=== PATIENT | female | born 1995 | race Caucasian/White ===

== ENCOUNTER 2016-03-12 15:57 | Emergency (ER) | payer BC ==
[~2016-03-12] VITALS: Ht 152.4 cm; Wt 52.0 kg
[2016-03-12 16:11] VITALS: TEMP 37; Ht 152.4 cm; Wt 52.0 kg
[2016-03-12] MEDS ORDERED: SODIUM CHLORIDE 0.9% 1000ML 1,000 ML IV STA (17:00)
[2016-03-12] MEDS ORDERED: KETOROLAC TROMETHAMINE 30 MG/ML VIAL IV STA (17:00)
[2016-03-12] MEDS ORDERED: ONDANSETRON INJ 2 MG/ML 2 ML VIAL IV STA (17:00)
--- NOTE | 2016-03-12 17:23 | EMERGENCY ROOM VISIT NOTE ---
History Report prepared by Timiibbrandon: Meredith Lemon Under the Supervision of: Dr. Anthony Galan D.O. First contact with patient: 16:55 Chief Complaint: OTHER COMPLAINT Stated Complaint: MUSCLES SPASMS,LIGHT SENSITIVITY,PAIN IN HEAD History of Present Illness The patient is a 20 year old female who presents to the Emergency Room with complaints of waxing and waning diffuse muscle spasms that have been going on for the past several hours. Per patient's boyfriend, at worst, her entire body is thrashing. The episodes improve to the point where only one extremity is shaking but the shaking has never completely gone away. About 30 minutes after her symptoms began, she was very weak and could not stand up. About an hour later she was able to walk but her boyfriend notes that she was shuffling her feet slowly. The patient also complains of a slight frontal headache with photophobia. Her boyfriend was also concerned that it took her a few seconds to realize how to sign her name when she was in the emergency room. The patient reports having similar shaking episodes when she was in middle school but they never lasted more than a half hour. She has not had an episode since 2011. She was seen by neurology and has been on gabapentin and tramadol in the past. Source of History: patient, spouse/significant other Onset: a few hours ago Position: other (global) Quality: other (muscle spams/shaking) Timing: waxes/wanes Associated Symptoms: + headache (with photophobia), + weakness Review of Systems See HPI for pertinent positives & negatives. A total of 10 systems reviewed and were otherwise negative. Past Medical & Surgical Medical Problems: (1) Arthritis Family History No pertinent family history stated. Social History Smoking Status: Never Smoker Smokeless Tobacco Use: No Alcohol Use: none Marital Status: in relationship Current/Historical Medications Scheduled Etodolac (Etodolac), 500 MG PO DAILY Gabapentin (Neurontin), 100 MG PO BID Scheduled PRN Cetirizine (Zyrtec), 10 MG PO DAILY PRN for ALLERGIC REACTION Physical Exam Vital Signs Date Time Temp Pulse Resp B/P Pulse Ox O2 Delivery O2 Flow Rate FiO2 03/12/16 21:19 70 20 122/70 99 03/12/16 21:08 78 20 113/76 100 Room Air 03/12/16 18:21 73 16 126/80 98 Room Air 03/12/16 18:02 69 03/12/16 16:11 37.0 97 18 113/75 97 Room Air Physical Exam GENERAL: Lying in ER bed with significant other, laughing with significant other, intermittently shaking with right upper extremity upon our entry to the room. EYES: The conjunctivae are clear. The pupils are round and reactive. EARS, NOSE, MOUTH AND THROAT: The nose is without any evidence of any deformity. Mucous membranes are moist tongue is midline NECK: The neck is nontender and supple. RESPIRATORY: Normal respiratory effort is noted there is no evidence of wheezing rhonchi or rales CARDIOVASCULAR: Regular rate and rhythm noted there no murmurs rubs or gallops normal S1 normal S2 GASTROINTESTINAL: The abdomen is soft. Bowel sounds are present in all quadrants. Abdomen is nontender MUSCULOSKELETAL/EXTREMITIES: There is no evidence of gross deformity full range of motion is noted in the hips and shoulders SKIN: There is no obvious evidence of any rash. There are no petechiae, pallor or cyanosis noted. NEUROLOGIC: Patient is awake alert and oriented x3 strength is symmetric patellar reflexes are 2+ bilaterally Medical Decision & Procedures ER Provider Diagnostic Interpretation: X ray results and stated below per my interpretation and radiology interpretation. Other radiology results per my review and radiologist interpretation: CT HEAD WITHOUT CONTRAST (CT) CLINICAL HISTORY: Change in mental status with new onset weakness COMPARISON STUDY: No previous studies for comparison. TECHNIQUE: Axial CT of the brain is performed from the vertex to the skull base. IV contrast was not administered for this examination. CT DOSE: 638.56 mGycm FINDINGS: No intra or extra-axial mass lesions are visualized. There is no CT evidence of acute cortical infarction. There is no evidence of midline shift. There is no acute hemorrhage. No calvarial fractures are visualized. There is no evidence of pathologic ventricular dilatation. There is no evidence of acute sinusitis If unexplained neurological symptoms persist, an MRI could be obtained in follow-up IMPRESSION: Normal noncontrast head CT. Electronically signed by: Dillon Sharma M.D. 03/12/2016 5:51 PM Dictated Date/Time: 03/12/2016 5:49 PM CHEST ONE VIEW PORTABLE CLINICAL HISTORY: weakness COMPARISON STUDY: No previous studies for comparison. FINDINGS: The cardiac and mediastinal contours are normal. There is no evidence of focal pulmonary consolidation. There is no evidence of failure. No pleural effusions are visualized.[ IMPRESSION: No active disease in the chest. Electronically signed by: Dillon Sharma M.D. 03/12/2016 6:04 PM Dictated Date/Time: 03/12/2016 6:03 PM Laboratory Results 03/12/16 17:25 Red Blood Count 5.10, Mean Corpuscular Volume 84.1, Mean Corpuscular Hemoglobin 29.2, Mean Corpuscular Hemoglobin Concent 34.7, Mean Platelet Volume 11.4, Neutrophils (%) (Auto) 75.3, Lymphocytes (%) (Auto) 15.6, Monocytes (%) (Auto) 6.7, Eosinophils (%) (Auto) 2.0, Basophils (%) (Auto) 0.2, Neutrophils # (Auto) 8.87, Lymphocytes # (Auto) 1.84, Monocytes # (Auto) 0.79, Eosinophils # (Auto) 0.24, Basophils # (Auto) 0.02 03/12/16 17:25 Test 03/12/16 00:00 03/12/16 17:25 Urine Color YELLOW Urine Appearance CLEAR (CLEAR) Urine pH 6.5 (4.5-7.5) Urine Specific Pinson 1.005 (1.000-1.030) Urine Protein NEG (NEG) Urine Glucose (UA) NEG (NEG) Urine Ketones NEG (NEG) Urine Occult Blood NEG (NEG) Urine Nitrite NEG (NEG) Urine Bilirubin NEG (NEG) Urine Urobilinogen NEG (NEG) Urine Leukocyte Esterase NEG (NEG) White Blood Count 11.78 K/uL (4.8-10.8) Red Blood Count 5.10 M/uL (4.2-5.4) Hemoglobin 14.9 g/dL (12.0-16.0) Hematocrit 42.9 % (37-47) Mean Corpuscular Volume 84.1 fL (80-100) Mean Corpuscular Hemoglobin 29.2 pg (25-34) Mean Corpuscular Hemoglobin Concent 34.7 g/dl (32-36) Platelet Count 208 K/uL (130-400) Mean Platelet Volume 11.4 fL (7.4-10.4) Neutrophils (%) (Auto) 75.3 % Lymphocytes (%) (Auto) 15.6 % Monocytes (%) (Auto) 6.7 % Eosinophils (%) (Auto) 2.0 % Basophils (%) (Auto) 0.2 % Neutrophils # (Auto) 8.87 K/uL (1.4-6.5) Lymphocytes # (Auto) 1.84 K/uL (1.2-3.4) Monocytes # (Auto) 0.79 K/uL (0.11-0.59) Eosinophils # (Auto) 0.24 K/uL (0-0.5) Basophils # (Auto) 0.02 K/uL (0-0.2) RDW Standard Deviation 41.9 fL (36.4-46.3) RDW Coefficient of Variation 13.7 % (11.5-14.5) Immature Granulocyte % (Auto) 0.2 % Immature Granulocyte # (Auto) 0.02 K/uL (0.00-0.02) Anion Gap 9.0 mmol/L (3-11) Est Creatinine Clear Calc Drug Dose 75.6 ml/min Estimated GFR () 113.5 Estimated GFR (Non- 97.9 BUN/Creatinine Ratio 14.2 (10-20) Calcium Level 9.1 mg/dl (8.5-10.1) Magnesium Level 2.2 mg/dl (1.8-2.4) Total Bilirubin 0.4 mg/dl (0.2-1) Direct Bilirubin 0.1 mg/dl (0-0.2) Aspartate Amino Transf (AST/SGOT) 19 U/L (15-37) Alanine Aminotransferase (ALT/SGPT) 31 U/L (12-78) Alkaline Phosphatase 95 U/L (45-117) Total Creatine Kinase 91 U/L (26-192) Creatine Kinase MB < 0.5 ng/ml (0.5-3.6) Creatine Kinase MB Ratio (0-3.0) Troponin I < 0.015 ng/ml (0-0.045) Total Protein 8.5 gm/dl (6.4-8.2) Albumin 4.4 gm/dl (3.4-5.0) Lipase 156 U/L (73-393) Human Chorionic Gonadotropin, Qual NEG (NEG) Laboratory results per my review. Medications Administered Medications (Trade) Dose Ordered Sig/Nicole Route Start Time Stop Time Status Last Admin Dose Admin Ketorolac Tromethamine 30 mg 30 mg NOW STAT IV 2/1/17 17:00 03/12/16 17:02 DC 03/12/16 17:54 30 MG Sodium Chloride (Nss 1000ml) 1,000 ml @ 999 mls/hr Q1H1M STAT IV 03/12/16 17:00 03/12/16 18:00 DC 03/12/16 17:55 999 MLS/HR Ondansetron HCl (Zofran Inj) 4 mg NOW STAT IV 03/12/16 17:00 03/12/16 17:02 DC 03/12/16 17:54 4 MG ECG Indication: weakness Rate (beats per minute): 80 Rhythm: normal sinus Findings: no ectopy, other (no acute ST segment abnormality) Comparison ECG Date: no prior available ED Course 1700: The patient was evaluated in room A11A. A complete history and physical examination were performed. Ordered Zofran Inj 4 mg IV, NSS 1000 ml @ 999 mls/ hr IV, Toradol Inj 30 mg IV. 2044: Upon reevaluation, the patient is resting comfortably. I discussed the results and treatment plan with the patient. She verbalized agreement of the treatment plan. The patient was discharged home. Medical Decision Prior records/ancillary studies reviewed. Additional history obtained from the patients significant other. Triage Nursing notes reviewed. The patient's history was concerning for headache. Differential diagnosis: Etiologies such as migraine headache, meningitis, sinusitis, CO exposure, ICH, SAH, infection, tumor, headache, sinus thrombosis, arterial dissection, as well as others were entertained. The patient is a 20-year-old female who presented to the emergency department for evaluation of shaking movements in her extremities. She had what she described as muscle tremors and spasms which were very intermittent. They seem to get worse whenever I came into the room. You were fatigable. The patient had no loss of consciousness during this time. She had no focal neurologic deficits. She had no facial droop. I discussed the patient's laboratory and radiographic studies with her. She was treated with IV pain medication and antiemetics. She was also treated with IV fluids. I discussed the patient's laboratory and radiographic studies with her. She was also evaluated by the emergency Department mental health complex case manager. The patient was encouraged to continue all medications as prescribed and follow-up with [facility] this week for reevaluation. She was also encouraged to discuss the possibility that she may require referral to a neurologist. She was also encouraged to follow-up with [facility] for further evaluation as scheduled and return to the emergency department immediately if symptoms change worsen or if the need arises. Impression Primary Impression: Headache Additional Impressions: Muscle spasm Anxiety Scribe Attestation The scribe's documentation has been prepared under my direction and personally reviewed by me in its entirety. I confirm that the note above accurately reflects all work, treatment, procedures, and medical decision making performed by me. Departure Information Dispostion Home / Self-Care Referrals [facility] Patient Instructions Headache Pain, My [facility] Additional Instructions Follow-up with [facility] as soon as possible for reevaluation. You may require further testing such as an MRI the brain or an EEG to further evaluate the cause of her symptoms. You may also require a referral to a neurologist. Be sure to follow-up with [facility] as well. Rest and avoid any strenuous activity. Return to the emergency department if symptoms change worsen or the need arises. Problem Qualifiers
[2016-03-12 17:41] LABS: BASO % 0.2 %; BASO ABS # 0.02 K/uL (0-0.2); COMPLETE YES; HEMATOCRIT 42.9 % (37-47); IG% 0.2 %; LYMPH % 15.6 %; LYMPH ABS # 1.84 K/uL (1.2-3.4); MEAN CELL VOLUME 84.1 fL (80-100); MEAN CORPUSCULAR HEMOGLOBIN 29.2 pg (25-34); MEAN CORPUSCULAR HGB CONC 34.7 g/dl (32-36); MEAN PLATELET VOLUME 11.4 fL (7.4-10.4); MONO % 6.7 %; NEUT % 75.3 %; PLATELET COUNT 208 K/uL (130-400); WHITE BLOOD COUNT 11.78 K/uL (4.8-10.8)
--- NOTE | 2016-03-12 17:52 | DIAGNOSTIC IMAGING REPORT ---
CT HEAD WITHOUT CONTRAST (CT) CLINICAL HISTORY: Change in mental status with new onset weakness COMPARISON STUDY: No previous studies for comparison. TECHNIQUE: Axial CT of the brain is performed from the vertex to the skull base. IV contrast was not administered for this examination. CT DOSE: 638.56 mGycm FINDINGS: No intra or extra-axial mass lesions are visualized. There is no CT evidence of acute cortical infarction. There is no evidence of midline shift. There is no acute hemorrhage. No calvarial fractures are visualized. There is no evidence of pathologic ventricular dilatation. There is no evidence of acute sinusitis If unexplained neurological symptoms persist, an MRI could be obtained in follow-up IMPRESSION: Normal noncontrast head CT. Electronically signed by: Dillon Sharma M.D. 03/12/2016 5:51 PM Dictated Date/Time: 03/12/2016 5:49 PM
[2016-03-12 17:57] LABS: URINE APPEARANCE CLEAR (CLEAR); URINE BILIRUBIN NEG (NEG); URINE COLOR YELLOW; URINE NITRITE NEG (NEG); URINE PH 6.5 (4.5-7.5); URINE SPECIFIC GRAVITY 1.005 (1.000-1.030); UROBILINOGEN NEG (NEG)
[2016-03-12 18:02] LABS: MANUAL MICROSCOPIC REQUIRED? NO; REVIEW REQ? NO
[2016-03-12 18:04] LABS: BLOOD UREA NITROGEN 12 mg/dl (7-18); CREATININE 0.86 mg/dl (0.60-1.20); GLUCOSE 84 mg/dl (70-99)
[2016-03-12 18:05] LABS: ALT/SGPT 31 U/L (12-78); BUN/CREATININE RATIO 14.2 (10-20); CALCIUM 9.1 mg/dl (8.5-10.1); CARBON DIOXIDE 26 mmol/L (21-32); CHLORIDE 107 mmol/L (98-107); MAGNESIUM 2.2 mg/dl (1.8-2.4); POTASSIUM 3.7 mmol/L (3.5-5.1); SODIUM 142 mmol/L (136-145)
--- NOTE | 2016-03-12 18:05 | DIAGNOSTIC IMAGING REPORT ---
CHEST ONE VIEW PORTABLE CLINICAL HISTORY: weakness COMPARISON STUDY: No previous studies for comparison. FINDINGS: The cardiac and mediastinal contours are normal. There is no evidence of focal pulmonary consolidation. There is no evidence of failure. No pleural effusions are visualized.[ IMPRESSION: No active disease in the chest. Electronically signed by: Dillon Sharma M.D. 03/12/2016 6:04 PM Dictated Date/Time: 03/12/2016 6:03 PM
[2016-03-12 18:08] LABS: ALKALINE PHOSPHATASE 95 U/L (45-117); AST/SGOT 19 U/L (15-37)
[2016-03-12 18:14] LABS: PREG INTERNAL NEGATIVE QC NEG CLEAR BACKGROUND; PREG INTERNAL POSITIVE QC POS CONTROL LINE
[2016-03-12] MEDS ORDERED: GABA-112 PO (19:25)
[2016-03-12] MEDS ORDERED: ETOD500T95 PO (19:27)
[2016-03-12] MEDS ORDERED: CETI10TA84 PO (19:28)
[2016-03-12 21:19] VITALS: BP 122/70; PULSE 70; O2SAT 99
== END 2016-03-12 21:21 | disposition home or self-care (01) ==
LOC: C.EDB 15:59 → C.EDA 21:21
DX: R51 Headache (principal); M62.838 Other muscle spasm; F41.9 Anxiety disorder, unspecified; M19.90 Unspecified osteoarthritis, unspecified site

== ENCOUNTER → 2016-04-07 | Outpatient (CLI) | payer BC ==
[~2016-04-07] MED LIST: CETI10TA84 PO; ETOD500T95 PO; GABA-112 PO
--- NOTE | 2016-04-07 16:53 | MOTOR CONDUCTION ---
ELECTROENCEPHALOGRAM FOR: Vonnie Elizabeth PA-C. CLINICAL DIAGNOSIS: Muscle twitching question myoclonus. ELECTROENCEPHALOGRAM DIAGNOSIS: Essentially normal during wakefulness. DESCRIPTION OF TRACING: This EEG was done in the laboratory is of reasonable technical quality, although is hampered by quite a bit of the patient's muscle movement artifact. Video analysis of the patient's movement and behavior certainty captured all these events and illustrated that the movements were volitional 1 type and to some degree in response to the initiation of the photic stimulation. Photic stimulation was performed. Drowsiness was not recorded. Hyperventilation was done and was reasonably well sustained. During wakefulness, there is evidence for a normal background rhythm in the alpha range of up to 10 Hz of maximum frequency and 30 microvolts of maximum amplitude. This is maximum posterior head regions and bilaterally symmetrical. Polymorphic mid frequency theta activity is seen in all head regions without clear focal or regional predominance. Anterior head region maximum bilaterally symmetrical low voltage fast activity in the beta range is present. Photic stimulation induces no important changes. There is some eye closure and blinking activity induced by the onset of the stimulus, but no photoparoxysmal or photomyogenic components are clearly recorded. Hyperventilation induces no important changes. At no time during the waking tracing is there evidence for potentially epileptogenic activity in the form of polyspike or spike wave bursts, focal sharp waves or focal spikes. INTERPRETATION: This electroencephalogram is essentially normal during wakefulness revealing no evidence for focal or generalized encephalopathy and no evidence for potentially epileptogenic activity.
== END | disposition home or self-care (01) ==
LOC: C.NEUR 14:40
PROVIDERS: ATTEND Psychiatry & Neurology Neurology
DX: R25.3 Fasciculation (principal)